=== PATIENT | female | born 1945 | race Caucasian/White ===

== ENCOUNTER 2024-05-26 09:16 | Outpatient (CLI) | payer MEDICARE, OTHER | END 2024-05-26 09:17 | disposition home or self-care (01) | LOC: CSHCT 09:16 | PROVIDERS: ATTEND Orthopaedic Surgery Hand Surgery | DX: S62.024A Nondisplaced fracture of middle third of navicular [scaphoid] bone of right wrist, initial encounter for closed fracture (principal); S52.501A Unspecified fracture of the lower end of right radius, initial encounter for closed fracture ==